=== PATIENT | male | born 1980 | race Caucasian/White ===

== ENCOUNTER → 2019-09-07 | Outpatient (CLI) | payer BC ==
--- NOTE | 2019-09-07 15:22 | US ---
EXAMINATION TYPE: US thyroid st tissue head/neck DATE OF EXAM: 09/07/2019 COMPARISON: NONE CLINICAL HISTORY: E04.9 Goiter. Goiter GLAND SIZE: Right Lobe: 4.5 x 1.5 x 1.8 cm Overall Parenchyma: homogenous Left Lobe: 4.3 x 1.3 x 1.9 cm Overall Parenchyma: homogeneous Isthmus Thickness: 0.4 cm NODULES RIGHT: # of nodules measured on right: 0 LEFT: # of nodules measured on left: 0 ISTHMUS: # of nodules measured in the isthmus: 0 Bilateral neck scanned, no evidence of lymphadenopathy. IMPRESSION: Mildly enlarged thyroid gland. No focal nodule.
== END | disposition home or self-care (01) ==
LOC: RADUSWWP 14:35
PROVIDERS: ATTEND Family Medicine
DX: E04.9 Nontoxic goiter, unspecified (principal)
CPT/HCPCS: 76536

== ENCOUNTER 2019-10-15 20:27 | Emergency (ER) | payer BC, OTHER ==
[2019-10-15 20:38] VITALS: TEMP 98.7
--- NOTE | 2019-10-15 20:43 | ED ---
Psych HPI - General Chief Complaint: Psychiatric Symptoms Stated Complaint: Mental Health Time Seen by Provider: 10/15/19 20:42 Source: patient, RN notes reviewed, old records reviewed Mode of arrival: ambulatory - History of Present Illness Initial Comments: this is a 39-year-old male here for evaluation patient presents today for evaluation or psychiatric illness increased depression with issues at work. Patient does admit to alcoholism. No other recent drug abuse , no prior history of similar significant complaints MD Complaint: suicidal ideation, feels depressed -: days(s) Associated Psychiatric Symptoms: depression, suicidal ideation History of same: No Quality: constant Improves With: none Worsens With: medication Context: recent alcohol abuse, significant life stressor (job issues) Associated Symptoms: insomnia Treatments Prior to Arrival: placed on mental health hold If Self Harm: admits thoughts of self harm - Related Data Home Medications Medication Instructions Recorded Confirmed Desvenlafaxine [Desvenlafaxine ER] 50 mg PO BID 10/15/19 10/15/19 Allergies Allergy/AdvReac Type Severity Reaction Status Date / Time Penicillins Allergy Unknown Verified 10/15/19 20:38 Review of Systems ROS Statement: Those systems with pertinent positive or pertinent negative responses have been documented in the HPI. ROS Other: All systems not noted in ROS Statement are negative. Past Medical History Past Medical History: Asthma Additional Past Medical History / Comment(s): OCD History of Any Multi-Drug Resistant Organisms: None Reported Past Surgical History: No Surgical Hx Reported Past Psychological History: Anxiety, Depression Smoking Status: Never smoker Past Alcohol Use History: Occasional Past Drug Use History: None Reported General Exam Limitations: no limitations General appearance: anxious Head exam: Present: atraumatic, normocephalic, normal inspection Eye exam: Present: normal appearance, PERRL, EOMI. Absent: scleral icterus, conjunctival injection, periorbital swelling ENT exam: Present: normal exam, mucous membranes moist Neck exam: Present: normal inspection. Absent: tenderness, meningismus, lymphadenopathy Respiratory exam: Present: normal lung sounds bilaterally. Absent: respiratory distress, wheezes, rales, rhonchi, stridor Cardiovascular Exam: Present: normal rhythm, tachycardia, normal heart sounds. Absent: systolic murmur, diastolic murmur, rubs, gallop, clicks GI/Abdominal exam: Present: soft, normal bowel sounds. Absent: distended, tenderness, guarding, rebound, rigid Extremities exam: Present: normal inspection, full ROM, normal capillary refill. Absent: tenderness, pedal edema, joint swelling, calf tenderness Back exam: Present: normal inspection Neurological exam: Present: alert, oriented X3, CN II-XII intact Psychiatric exam: Present: normal affect, normal mood Skin exam: Present: warm, dry, intact, normal color. Absent: rash Course Vital Signs 10/15/19 10/15/19 20:34 23:51 Temperature 98.7 F Pulse Rate 112 H 76 Respiratory 18 18 Rate Blood Pressure 143/94 134/91 O2 Sat by Pulse 100 96 Oximetry - Reevaluation(s) Reevaluation #1: 10/15/19 22:05 medical records reviewed Medical Decision Making - Medical Decision Making 39 male who seen and evaluated psychiatry patient will be admitted for psychiatric evaluation and treatment - Lab Data Lab Results 10/15/19 Range/Units 23:00 Urine Opiates Screen Not Detected (NotDetected) Ur Oxycodone Screen Not Detected (NotDetected) Urine Methadone Screen Not Detected (NotDetected) Ur Propoxyphene Screen Not Detected (NotDetected) Ur Barbiturates Screen Not Detected (NotDetected) U Tricyclic Antidepress Not Detected (NotDetected) Ur Phencyclidine Scrn Not Detected (NotDetected) Ur Amphetamines Screen Not Detected (NotDetected) U Methamphetamines Scrn Not Detected (NotDetected) U Benzodiazepines Scrn Not Detected (NotDetected) Urine Cocaine Screen Not Detected (NotDetected) U Marijuana (THC) Screen Not Detected (NotDetected) Disposition Clinical Impression: Depression, Suicidal ideation Disposition: TRANSFER TO PSYCH HOSP/UNIT Condition: Fair Is patient prescribed a controlled substance at d/c from ED?: No Referrals: Doe Mcneal MD [Primary Care Provider] - 1-2 days
[2019-10-15 23:21] LABS: Amphetamine Screen,Urine Not Detected (NotDetected); Barbiturate Screen,Urine Not Detected (NotDetected); Benzodiazepines Screen,Urine Not Detected (NotDetected); Cocaine Screen,Urine Not Detected (NotDetected); Methadone Screen, Urine Not Detected (NotDetected); Opiate Screen,Urine Not Detected (NotDetected); Oxycodone Screen, Urine Not Detected (NotDetected); Phencyclidine Screen,Urine Not Detected (NotDetected); Tricyclic Antidepressant,Urine Not Detected (NotDetected); Urn Cannabinoid Scrn Not Detected (NotDetected)
[2019-10-16 05:04] LABS: Basophils # (A) 0.1 k/uL (0-0.2); Basophils % (A) 1 %; Eosinophils # (A) 0.2 k/uL (0-0.7); Eosinophils % (A) 2 %; HCT 46.1 % (39.0-53.0); HGB 16.4 gm/dL (13.0-17.5); Lymphocytes % (A) 21 %; MCH 29.5 pg (25.0-35.0); MCHC 35.5 g/dL (31.0-37.0); MCV 83.3 fL (80.0-100.0); Mean Platelet Volume 7.2; Monocytes # (A) 0.7 k/uL (0-1.0); Monocytes % (A) 7 %; Neutrophils # (A) 6.4 k/uL (1.3-7.7); Neutrophils % (A) 68 %; Platelet Count 255 k/uL (150-450); RBC 5.54 m/uL (4.30-5.90); RDW 13.1 % (11.5-15.5); WBC 9.4 k/uL (3.8-10.6)
[2019-10-16 05:12] LABS: African American GFR (CKD) >90 (>60 ml/min/1.73 sqM); Anion Gap 9 mmol/L; Blood Urea Nitrogen 12 mg/dL (9-20); Calcium 9.7 mg/dL (8.4-10.2); Carbon Dioxide 24 mmol/L (22-30); Chloride 105 mmol/L (98-107); Glucose 122 mg/dL (74-99); Non-African American GFR(CKD) >90 (>60 ml/min/1.73 sqM); Potassium 3.8 mmol/L (3.5-5.1); Sodium 138 mmol/L (137-145)
[2019-10-16 13:24] VITALS: BP 131/84; PULSE 70; RESP 18
== END 2019-10-16 13:23 ==
LOC: EC 20:27
DX: F32.9 Major depressive disorder, single episode, unspecified (principal); R45.851 Suicidal ideations; Z79.899 Other long term (current) drug therapy; Z88.0 Allergy status to penicillin
CPT/HCPCS: 36415; 80048; 80306; 82075; 85025; 99285

== ENCOUNTER → 2021-12-10 | Outpatient (CLI) | payer BC, OTHER ==
--- NOTE | 2021-12-10 21:29 | CT ---
EXAMINATION TYPE: CT abdomen pelvis wo con CT DLP: 1233.7 mGycm, Automated exposure control for dose reduction was used. DATE OF EXAM: 12/10/2021 7:07 PM COMPARISON: None CLINICAL INDICATION:Male, 41 years old with history of R10.32 LEFT LOWER QUADRANT PAIN; left flank pa in TECHNIQUE: Standard CT of the abdomen and pelvis without IV or oral contrast. Lack of IV or oral co ntrast limits evaluation of solid and hollow organ viscera. Coronal and sagittal reformats were perfo rmed. FINDINGS: LOWER CHEST: Unremarkable ABDOMEN LIVER: Unremarkable GALLBLADDER AND BILE DUCTS: Unremarkable. PANCREAS: Unremarkable. SPLEEN: Unremarkable. ADRENAL GLANDS: Unremarkable. KIDNEYS AND URETERS: No evidence of hydronephrosis or renal calculus. The ureters are unremarkable. PELVIS BLADDER: Unremarkable REPRODUCTIVE: Unremarkable. ABDOMEN & PELVIS STOMACH AND BOWEL: Small hiatal hernia, duodenum is unremarkable. No evidence of bowel obstruction. PERITONEUM: No evidence of pneumoperitoneum or free fluid. VASCULATURE: No evidence of aortic aneurysm. MUSCULOSKELETAL: No acute osseous abnormalities LYMPH NODES: No gross evidence for lymphadenopathy. SOFT TISSUE/ABDOMINAL WALL: Fatty changes of the left inguinal canal. IMPRESSION: 1. No acute intra-abdominal process, no evidence of hydronephrosis, obstructive uropathy or evidence for diverticulitis. 2. Small hiatal hernia.
== END | disposition home or self-care (01) ==
LOC: RADCTMAIN 18:44
PROVIDERS: ATTEND Family Medicine
DX: K44.9 Diaphragmatic hernia without obstruction or gangrene (principal)
CPT/HCPCS: 74176

== ENCOUNTER → 2022-01-01 | Outpatient (CLI) | payer OTHER ==
--- NOTE | 2022-01-01 10:53 | XR ---
Left hand HISTORY: Trauma and pain 3 views the left hand Bone mineralization, joint spaces and alignment are maintained. Soft tissue swelling. IMPRESSION: No fracture or dislocation is evident.
== END | disposition home or self-care (01) ==
LOC: RADXRMAIN 09:40
PROVIDERS: ATTEND Emergency Medicine
DX: M79.642 Pain in left hand (principal); S69.92XA Unspecified injury of left wrist, hand and finger(s), initial encounter

== ENCOUNTER → 2025-03-06 | Outpatient (CLI) | payer OTHER ==
--- NOTE | 2025-03-06 10:56 | XR ---
EXAMINATION TYPE: XR lumbar spine 2 or 3V DATE OF EXAM: 03/06/2025 10:45 AM COMPARISON: CT 12/10/2021 CLINICAL INDICATION: Male, 44 years old with history of S39.012A STRAIN OF MUSCLE, FASCIA AND TENDON OF LO; PHH, pain TECHNIQUE: XR lumbar spine 2 or 3V - Frontal, lateral and coned in L5-S1 lateral views of the spine. FINDINGS: No evidence of any acute osseous pathology. No evidence of loss of vertebral body height i s seen. There is normal alignment of the lumbar vertebral bodies. Scattered disc space narrowing. Mul tilevel marginal osteophyte formation throughout the visualized spine. There is facet joint arthropat hy throughout the spine. No significant neural foraminal stenosis. IMPRESSION: 1. No acute fracture. 2. Mild multilevel disc degeneration. [facility], , 03/06/2025 10:54 AM
== END | disposition home or self-care (01) ==
LOC: RADXRMAIN 10:32
PROVIDERS: ATTEND Emergency Medicine
DX: S39.012A Strain of muscle, fascia and tendon of lower back, initial encounter (principal); M51.360 Other intervertebral disc degeneration, lumbar region with discogenic back pain only
CPT/HCPCS: 72100

== ENCOUNTER → 2025-04-01 | Outpatient (CLI) | payer MEDICAID ==
--- NOTE | 2025-04-01 13:29 | CA ---
Exercise Stress Test Report Name: Felipe Escamilla Exam Date: 04/01/2025 10:20 Exam Location: [place] Stress Ht (in): 69 Wt (lb): 255 BSA: 2.29 Ordering Phys: Asya Sherman MD Referring Phys: CAROLINE Technologist: JEN Age: 45 Gender: M : 1980 Procedure CPT: Indications: R06.09 Other forms of dyspnea ICD-10 Codes: Patient History: Chest discomfort, shortness of breath on exertion. Hyperlipidemia and family history of heart disease. Medications: Meds past 24 hrs: Pretest Chest Pain: STRESS TEST Vincenzo Protocol Exercise Duration (min:sec): 09:[address] Depressions (mm): Angina Score: Ebll Score: Resting HR (bpm): 80 Peak HR (bpm): 177 Resting BP (mmHg): 144 / 89 Peak BP (mmHg): 191 / 87 MPHR: 175 Target HR: 149 % MPHR: 101 METS: 10.3 Total Dose: Peak Dose: Atropine: Double Product: 19315 BP Response: Stress Termination: Max exertion Stress Symptoms: No symptoms Stress Summary: ECG ANALYSIS Resting ECG: Sinus rhythm. Normal conduction. No arrhythmias. Normal repolarization. Stress ECG: No ECG changes from baseline with Lexiscan infusion. Ventricular premature contraction. CONCLUSIONS No ECG evidence of ischemia with Lexiscan infusion. Nuclear test results to follow. Dr. Asya Sherman MD (Electronically Signed) Final Date: 01 April 2025 13:28
== END | disposition home or self-care (01) ==
LOC: RADNMMAIN 09:35
PROVIDERS: ATTEND Internal Medicine Interventional Cardiology
DX: E78.5 Hyperlipidemia, unspecified (principal); I49.3 Ventricular premature depolarization; Z82.49 Family history of ischemic heart disease and other diseases of the circulatory system; R06.09 Other forms of dyspnea
CPT/HCPCS: 93017

== ENCOUNTER → 2025-04-02 | Outpatient (CLI) | payer MEDICAID ==
[2025-04-02 15:28] VITALS: BP 122/82; PULSE 104; RESP 16; TEMP 98.2
--- NOTE | 2025-04-02 17:04 | P.SLEEP ---
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 The patient works between 11 PM and 7 AM 5 days a week. As such, the patient is going to bed at noon and wakes up between 5 and 6 PM in the afternoon. He is averaging less than 5 hours of sleep. On the days that he does not work, he goes to bed late around 3 AM and he gets out of bed at 7 AM in the morning. He is obese that he snores and he quits breathing at night and he has been told this by his . He has excessive fatigue and tiredness and sleepiness while awake and this is somewhat affecting his daytime functionality. Sleep apnea was infected and the patient was referred to me for further evaluation. He has chronic anxiety and he has an OCD personality trait and the patient has been maintained on venlafaxine. He has been also taking trazodone to help him generate and maintain sleep. The patient drinks Pepsi during working hours. No history of excessive utilization of coffee. No alcohol consumption. Denies waking up choking or gasping for air. Occasional grinding of the teeth. He is a nose breather. No nocturnal chest pain or heartburn or shortness of breath. No nocturnal seizures. His weight has been essentially stable over the past 5 to 10 years probably some limited weight gain in the order of 10 pounds. He sleeps on his side. He does not take any naps during the day. No sleep paralysis. No hallucinations. No cataplexy. He does report some unusual jerks during sleep. Review of Systems Constitutional: Reports daytime sleepiness, Reports fatigue, Reports weight gain Eyes: denies as per HPI, denies blurred vision, denies bulging eye, denies decreased vision, denies diplopia, denies discharge, denies dry eye, denies irritation, denies itching, denies pain, denies photophobia, denies loss of peripheral vision, denies loss of vision, denies tunnel vision/blind spots Ears: deny: decreased hearing, ear discharge, earache, tinnitus Ears, nose, mouth and throat: Reports as per HPI Breasts: absent: as per HPI, gynecomastia Cardiovascular: Reports as per HPI Respiratory: Reports snoring Gastrointestinal: Reports as per HPI Genitourinary: Reports as per HPI Musculoskeletal: Reports as per HPI Musculoskeletal: absent: ankle pain, ankle stiffness, ankle swelling, as per HPI, elbow pain, elbow stiffness, elbow swelling, foot pain, foot stiffness, foot swelling, hand pain, hand stiffness, hand swelling, hip pain, hip stiffness, hip swelling, knee pain, knee stiffness, knee swelling, shoulder pain, shoulder stiffness, shoulder swelling, wrist pain, wrist stiffness, wrist swelling Integumentary: Reports as per HPI Neurological: Reports as per HPI Psychiatric: Reports anxiety, Reports change in sleep habits, Reports hypersomnia, Reports sleep disturbances Endocrine: Reports as per HPI, Reports fatigue Allergic/Immunologic: Reports as per HPI Past Medical History Past Medical History: GERD/Reflux, Hyperlipidemia Additional Past Medical History / Comment(s): restless legs, OCD History of Any Multi-Drug Resistant Organisms: None Reported Past Surgical History: No Surgical Hx Reported Past Anesthesia/Blood Transfusion Reactions: No Reported Reaction Past Psychological History: Anxiety, Depression Smoking Status: Never smoker Past Alcohol Use History: Occasional Past Drug Use History: None Reported - Past Family History Father Family Medical History: GERD/Reflux Additional Family Medical History / Comment(s): mental illnesss (OCD) Mother Family Medical History: Osteoarthritis (OA) Medications and Allergies Home Medications Medication Instructions Recorded Confirmed Type Desvenlafaxine [Desvenlafaxine ER] 50 mg PO BID 10/15/19 10/15/19 History Cetirizine HCl 10 mg PO DAILY 04/02/25 04/02/25 History Omeprazole 40 mg PO DAILY 04/02/25 04/02/25 History Venlafaxine HCl ER [Effexor XR] 150 mg PO DAILY 04/02/25 04/02/25 History traZODone HCL [Desyrel] 50 mg PO DIRECTED PRN 04/02/25 04/02/25 History Allergies Allergy/AdvReac Type Severity Reaction Status Date / Time Penicillins Allergy Unknown Verified 12/27/22 21:54 Physical Exam Vitals: Vital Signs Temp Pulse Resp BP Pulse Ox 04/02/25 15:26 98.2 F 104 H 16 122/82 97 Intake and Output 04/02/25 04/02/25 04/02/25 06:59 14:59 22:59 Other: Weight 114.759 kg The patient appeared well nourished and normally developed. Vital signs as documented. The patient has a Mallampati class III, body mass index of 38.4 weight is 253 pounds. Head exam is unremarkable. No scleral icterus or corneal arcus noted. Neck is without jugular venous distension, thyromegaly, or carotid bruits. Carotid upstrokes are brisk bilaterally. Lungs are clear to auscultation and percussion. Cardiac exam reveals the PMI to be normally sized and situated. Rhythm is regular. First and second heart sounds normal. No murmurs, rubs or gallops. Abdominal exam reveals normal bowel sounds, no masses, no organomegaly and no aortic enlargement. Extremities are nonedematous and both femoral and pedal pulses are normal. Examination of the skin revealed no evidence of significant rashes, suspicious appearing nevi or other concerning lesions. Neurologically, the patient is awake and alert and the patient does not have any focal neurological deficit. Cranial nerves are essentially intact. Assessment and Plan Plan: Chronic exhaustion/fatigue/sleepiness with an [place] score of 6. Clearly, the patient has an insufficient sleep syndrome. 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 He also has features of obstructive sleep apnea including snoring, talking in the posterior pharynx and the patient has a high body mass index. Sleep apnea cannot be completely ruled out. Another comorbidity is increased anxiety/comorbid anxiety contributing to his sleep fragmentation and difficulties in initiating and maintaining sleep. As such, his sleep disturbances quite multifactorial. 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 He is averaging less than 5 hours of sleep and this is not enough and the patient sleep is sufficient. Discussed with him principles of relaxation techniques and stimulus control. Will implement good sleep hygiene measures. Recommend him sleeping immediately after arriving home and his sleeping hours should be between 8 AM and 3 PM and the patient should be able to take a nap later on prior to him going back to work and doing his midline shift. On the days off, the patient is to go to bed earlier and it is advised for him to go to bed between 11 PM and midnight. Continue venlafaxine for his chronic anxiety/OCD personality traits. Encourage weight loss. Maintain good sleep hygiene measures. Will obtain a polysomnography and this will be morning study to evaluate this patient for an underlying sleep breathing disorder will make further recommendations accordingly. Sleep Note - Sleep Data ESS Total: 6 - Sleep Note Sleep Note: Temperature: 98.2 F Pulse Rate: 104 Respiratory Rate: 16 Blood Pressure: 122/82 SpO2: 97 Height: 5 ft 8 in Weight: 114.759 kg BMI: Neck Circumference: 18
== END ==
LOC: 3 N SLEEP 14:59
PROVIDERS: ATTEND Internal Medicine Critical Care Medicine
DX: G47.33 Obstructive sleep apnea (adult) (pediatric) (principal); F41.9 Anxiety disorder, unspecified; E66.9 Obesity, unspecified; F42.9 Obsessive-compulsive disorder, unspecified; K21.9 Gastro-esophageal reflux disease without esophagitis; Z68.38 Body mass index [BMI] 38.0-38.9, adult; Z88.0 Allergy status to penicillin
CPT/HCPCS: 99211

== ENCOUNTER → 2025-05-16 | Outpatient (CLI) | payer MEDICAID ==
--- NOTE | 2025-05-17 10:53 | CA ---
Transthoracic Echo Report Name: Felipe Escamilla Age: 45 Gender: M : 1980 Exam Date: 05/16/2025 15:08 Exam Location: [place] [facility] Ht (in): 68 Wt (lb): 261 Ordering Physician: Asya Sherman MD ([id number]) Attending/Referring Phys: Asya Sherman MD ([id number]) [employer] Mdm Developer Shelley Mooney RDCS Procedure CPT: Indications: R06.09 Other forms of dyspnea Cardiac Hx: Technical Quality: Good Contrast 1: Total Dose (mL): Contrast 2: Total Dose (mL): MEASUREMENTS (Male / Female) Normal Values 2D ECHO LV Diastolic Diameter PLAX 4.3 cm 4.2 - 5.9 / 3.9 - 5.3 cm LV Systolic Diameter PLAX 2.7 cm IVS Diastolic Thickness 1.0 cm 0.6 - 1.0 / 0.6 - 0.9 cm LVPW Diastolic Thickness 0.9 cm 0.6 - 1.0 / 0.6 - 0.9 cm LV Relative Wall Thickness 0.4 RV Internal Dim ED PLAX 3.5 cm LA Systolic Diameter LX 3.3 cm 3.0 - 4.0 / 2.7 - 3.8 cm LV Diastolic Volume MOD BP 110.8 cm??? 67 - 155 / 56 - 104 cm??? LV Systolic Volume MOD BP 52.0 cm??? 22 - 58 / 19 - 49 cm??? LV Ejection Fraction MOD BP 53.0 % >= 55 % LV Cardiac Index MOD BP 1976.1 cm???/min???m??? LV Diastolic Volume MOD 4C 120.4 cm??? LV Systolic Volume MOD 4C 53.9 cm??? LV Ejection Fraction MOD 4C 55.3 % LV Cardiac Index MOD 4C 2239.3 cm???/min???m??? LV Diastolic Length 4C 7.6 cm LV Systolic Length 4C 6.4 cm LV Diastolic Volume MOD 2C 98.8 cm??? LV Systolic Volume MOD 2C 46.4 cm??? LV Ejection Fraction MOD 2C 53.1 % LV Cardiac Index MOD 2C 1764.6 cm???/min???m??? LV Diastolic Length 2C 7.9 cm LV Systolic Length 2C 7.1 cm LA Volume 42.7 cm??? 18 - 58 / 22 - 52 cm??? LA Volume Index 17.5 cm???/m??? 16 - 28 cm???/m??? M-MODE Aortic Root Diameter MM 3.5 cm AV Cusp Separation MM 2.3 cm DOPPLER AI Peak Velocity 143.4 cm/s AI Peak Gradient 8.2 mmHg MV Area PHT 4.8 cm??? Mitral E Point Velocity 83.7 cm/s Mitral A Point Velocity 76.2 cm/s Mitral E to A Ratio 1.1 MV Deceleration Time 158.1 ms TR Peak Velocity 217.7 cm/s TR Peak Gradient 19.0 mmHg Right Ventricular Systolic Press 23.4 mmHg FINDINGS Left Ventricle Left ventricular ejection fraction is estimated at 55-60 %. Left ventricular cavity size normal. Left ventricular wall thickness normal. Right Ventricle Normal right ventricular size. Right ventricular systolic pressure within normal limits. Right Atrium Normal right atrial size. No right atrial thrombus or mass seen. Left Atrium Normal left atrial size. No left atrial thrombus or mass present. Mitral Valve Structurally normal mitral valve. Trace mitral regurgitation. No evidence for mitral valve prolapse. No mitral stenosis. Aortic Valve Trileaflet aortic valve. No aortic valve stenosis or regurgitation. Tricuspid Valve Structurally normal tricuspid valve. Trace to mild tricuspid regurgitation. Pulmonic Valve Structurally normal pulmonic valve. No pulmonic regurgitation. Pericardium No pericardial effusion. Aorta Normal size aortic root and proximal ascending aorta. CONCLUSIONS LVEF 55 to 60% No obvious regional wall motion abnormality Normal RV size and systolic function No significant valvular dysfunction No pericardial effusion Previewed by: Dr Catracho Hoffmann (Electronically Signed) Final Date: 17 May 2025 10:52
== END | disposition home or self-care (01) ==
LOC: RADECHMAIN 14:57
PROVIDERS: ATTEND Internal Medicine Interventional Cardiology
DX: I07.1 Rheumatic tricuspid insufficiency (principal); R06.09 Other forms of dyspnea
CPT/HCPCS: 93306